=== PATIENT | female | born 1970 | race Caucasian/White ===

== ENCOUNTER 2016-11-22 11:24 | Emergency (ER) | payer OTHER ==
[2016-11-22] MEDS ORDERED: ACETAMINOPHEN 325 MG TABLET PO ONE (12:03)
--- NOTE | 2016-11-22 12:05 | ER Document Report ---
HPI - HPI Patient complains to provider of: elbow injury Onset: Other - 3 days ago Pain Level: 5 Context: Patient reports that she fell from the top bunk 3 days ago landing on her left elbow. Patient complains of left elbow pain and swelling. Patient states she did notice that she had a small amount of bleeding to the left elbow but it stopped shortly after her injury occurred. Patient is right-hand dominant. Patient denies any fever. Associated Symptoms: Other - Elbow pain and swelling. denies: Fever Exacerbated by: Movement Relieved by: Denies Similar symptoms previously: No Recently seen / treated by doctor: No - ROS ROS below otherwise negative: Yes Systems Reviewed and Negative: Yes All other systems reviewed and negative - CONSTITUTIONAL Constitutional: DENIES: Fever, Chills - CARDIOVASCULAR Cardiovascular: DENIES: Chest pain - RESPIRATORY Respiratory: DENIES: Trouble Breathing, Coughing - GASTROINTESTINAL Gastrointestinal: DENIES: Abdominal Pain, Nausea, Patient vomiting - REPRODUCTIVE Reproductive: DENIES: : - MUSCULOSKELETAL Musculoskeletal: REPORTS: Extremity pain, Swelling. DENIES: Back Pain, Neck Pain - DERM Skin Color: Erythema, Ecchymosis - NURSING COMMENTS Comment: [facility] [place] at bedside. Pt reports fell from top bunk on Tuesday landing on L elbow, denies loc, striking head or neck, back pain. pt reports pain, swelling, bursing and decreased ROM to L elbow. + distal pulses and sensation noted, + movement of distal extremity. Pt reports decreased ROM at elbow. Past Medical History - General Information source: Patient - Social History Smoking Status: Former Smoker Frequency of alcohol use: None Drug Abuse: None Occupation: none Family History: Arthritis, CAD, CVA, Hyperlipidemia, Hypertension, Malignancy Endocrine Medical History: Reports: Hx Hypothyroidism Renal/ Medical History: Denies: Hx Peritoneal Dialysis Musculoskeltal Medical History: Reports Hx Musculoskeletal Deformity Psychiatric Medical History: Reports: Hx Anxiety, Hx Depression, Hx Post Traumatic Stress Disorder Past Surgical History: Reports: Hx Appendectomy, Hx Oral Surgery, Hx Orthopedic Surgery - L foot, Hx Tonsillectomy - Immunizations Hx Diphtheria, Pertussis, Tetanus Vaccination: Yes - 2014 [facility] Provider Document - CONSTITUTIONAL Agree With Documented VS: Yes Exam Limitations: No Limitations General Appearance: WD/WN, No Apparent Distress - INFECTION CONTROL TRAVEL OUTSIDE OF THE [place] IN LAST 30 DAYS: No - HEENT HEENT: Atraumatic - NECK Neck: Normal Inspection, Supple - RESPIRATORY Respiratory: Breath Sounds Normal, No Respiratory Distress O2 Sat by Pulse Oximetry: 96 - CARDIOVASCULAR Cardiovascular: Regular Rate, Regular Rhythm Pulses: Normal: Radial - BACK Back: Normal Inspection Notes: no midline tenderness - MUSCULOSKELETAL/EXTREMETIES Musculoskeletal/Extremeties: MAEW, Tender - Elbow joint tenderness with palpation and range of motion, 2+ edema to left elbow, 1+ swelling to proximal left forearm, Edema, Eccymosis - left elbow distal third of left upper arm - NEURO Level of Consciousness: Awake, Alert, Appropriate Motor/Sensory: No Motor Deficit - DERM Integumentary: Warm, Dry Course - Re-evaluation Re-evalutation: 11/22/16 13:[address] Brooks who agrees with plan for orthopedic consultation 11/22/16 13:[address] Zacarias who states that if there is no concern for open fracture, patient can be discharged home to treat the cellulitis and then follow -up with him next week so that he can schedule surgery for her elbow repair. 11/22/16 13:44 Dr Brooks to bedside for exam, no concern for open fracture given superficial abrasion overlying elbow 11/22/16 14:11 call placed to alf nurse, MICHAEL Zavala, report given with instructions for follow up as well as s/s to monitor for worsening - Vital Signs Vital signs: Temp Pulse Resp BP Pulse Ox 99.7 F 112 H 16 138/97 H 96 11/22/16 11:29 11/22/16 11:29 11/22/16 11:29 11/22/16 11:29 11/22/16 11:29 - Laboratory Result Diagrams: 11/22/16 13:15 - Diagnostic Test Radiology reviewed: Image reviewed, Reports reviewed Procedures - Immobilization Left Elbow Pre-Proc Neuro Vasc Exam: Normal Immobilizer type: Long arm posterior Performed by: PCT Post-Proc Neuro Vasc Exam: Normal Alignment checked and good: Yes Discharge - Discharge Clinical Impression: Left arm cellulitis Fracture, ulna, proximal Qualifiers: Encounter type: initial encounter Fracture type: closed Fracture morphology: unspecified fracture morphology Laterality: left Qualified Code(s): S52.002A - Unspecified fracture of upper end of left ulna, initial encounter for closed fracture Condition: Stable Disposition: HOME, SELF-CARE Instructions: Fracture ([facility]), Splint Precautions ([facility]), Sling to be Used ([facility]) , Elevate the Injury ([facility]), Clindamycin ([facility]), Oral Narcotic Medication ([facility]), Cellulitis ([facility]) Additional Instructions: Return immediately for any new or worsening symptoms Followup with orthopedic care provider, call tomorrow to make a followup appointment for next week. You need to have surgical repair by the orthopedic doctor to fix your fracture. He cannot perform the surgery until the infection involving the skin overlying the injury has resolved. Monitor the injury for any increased pain, swelling, redness, or fever. Return for any new or worsening symptoms. Prescriptions: Clindamycin HCl [Cleocin Hcl] 300 mg PO QID #40 capsule Oxycodone HCl/Acetaminophen [Percocet 5-325 mg Tablet] 1 tab PO ASDIR PRN #15 tablet PRN Reason: Referrals: MAKENNA SALAS DO [Primary Care Provider] - Follow up as needed BLANCA ZACARIAS DO [ACTIVE STAFF] - Follow up in 1 week
[2016-11-22] MEDS ORDERED: OXYCODONE HCL IR 5 MG TABLET PO ONE (12:38)
--- NOTE | 2016-11-22 12:45 | RADIOLOGY REPORT (SQ) ---
EXAM DESCRIPTION: ELBOW LEFT OVER 2 VIEWS COMPLETED DATE/TIME: 11/22/2016 12:26 pm REASON FOR STUDY: fall from bunk, left elbow injury COMPARISON: None. NUMBER OF VIEWS: One view. TECHNIQUE: Lateral radiographic image acquired of the left elbow. LIMITATIONS: None. FINDINGS: MINERALIZATION: Normal. BONES: There is a comminuted fracture of the proximal ulna at the joint with 2 cm displacement of the fragments. The humerus appears to be intact. JOINT: No effusion. SOFT TISSUES: No soft tissue swelling. No foreign body. OTHER: No other significant finding. IMPRESSION: Proximal ulnar fracture. TECHNICAL DOCUMENTATION: JOB ID: [id number] [employer]- All Rights Reserved
[2016-11-22] MEDS ORDERED: DIPH/PERTUSS(ACELL)/TETANUS VAC/PF 0.5 ML SYR (>=10YO) IM ONE (13:00)
[2016-11-22] MEDS ORDERED: CLINDAMYCIN 600 MG/D5W RTU 50 ML IV ONE (13:00)
[2016-11-22 13:36] LABS: ABSOLUTE BASOPHILS # (AUTO) 0.1 10^3/uL (0.0-0.2); ABSOLUTE EOSINOPHILS # (AUTO) 0.1 10^3/uL (0.0-0.6); ABSOLUTE LYMPHOCYTES (AUTO) 2.1 10^3/uL (0.5-4.7); ABSOLUTE MONOCYTES (AUTO) 0.6 10^3/uL (0.1-1.4); ABSOLUTE NEUT (AUTO) 5.3 10^3/uL (1.7-8.2); BASOPHILS % (AUTO) 0.8 % (0-2); EOSINOPHILS % (AUTO) 0.9 % (0-6); LYMPHOCYTES % (AUTO) 25.7 % (13-45); MEAN CORPUSCULAR HEMOGLOBIN 33.6 pg (27.0-33.4); MEAN CORPUSCULAR VOLUME 96 fl (80-97); MONOCYTES % (AUTO) 7.7 % (3-13); RED BLOOD COUNT 4.17 10^6/uL (3.72-5.28); SEGMENTED NEUTROPHILS % (AUTO) 64.9 % (42-78); WHITE BLOOD COUNT 8.2 10^3/uL (4.0-10.5)
[2016-11-22 14:48] VITALS: BP 135/83
== END 2016-11-22 14:48 | disposition home or self-care (01) ==
LOC: ER 11:24
PROC: 2W39X1Z Immobilization of Left Upper Extremity using Splint (ICD-10-PCS; principal; 2016-11-22)
DX: S52.002A Unspecified fracture of upper end of left ulna, initial encounter for closed fracture (principal); W06.XXXA Fall from bed, initial encounter; M79.89 Other specified soft tissue disorders; Z87.891 Personal history of nicotine dependence
CPT/HCPCS: 36415; 85025; 87040; 90471; 90715; 96365; 99284